=== PATIENT | female | born 1990 | race Caucasian/White ===

== ENCOUNTER 2017-03-09 12:49 | Emergency (ER) | payer MEDICAID ==
--- NOTE | 2017-03-09 14:48 | C.PDOC ---
History Of Present Illness 26 y/o female presents to the ED with complaints of dysuria, urinary frequency and urgency, suprapubic discomfort and nausea for the past couple days. Pt denies fever, vomiting, back pain, diarrhea or any other complaints. LMP 02/07, pt unsure if she is . Does not use any form of contraceptive. Time Seen by Provider: 03/09/17 13:40 Chief Complaint (Nursing): Abdominal Pain History Per: Patient History/Exam Limitations: no limitations Onset/Duration Of Symptoms: Days Current Symptoms Are (Timing): Still Present Severity: Mild Location Of Pain/Discomfort: Suprapubic Radiation Of Pain To:: None Associated Symptoms: Nausea, Urinary Symptoms. denies: Fever, Vomiting, Diarrhea, Back Pain Exacerbating Factors: None Alleviating Factors: None Recent travel outside of the [place]: No Abnormal Vaginal Bleeding: No Past Medical History Reviewed: Historical Data, Nursing Documentation, Vital Signs Vital Signs: Last Vital Signs Temp 98 F 03/09/17 16:00 Pulse 72 03/09/17 16:00 Resp 18 03/09/17 16:00 BP 112/74 03/09/17 16:00 Pulse Ox 96 03/09/17 16:00 - Medical History PMH: Gastritis - [facility] Procedures IMMOBILIZ/WOUND ATTN NEC (05/10/15) INJECT/INFUSE NEC (04/30/13) TETANUS TOXOID ADMINIST (05/10/15) Family History: States: Unknown Family Hx - Social History Hx Alcohol Use: No Hx Substance Use: No - Immunization History Hx Tetanus Toxoid Vaccination: No (patient not sure of last tetanus) Hx Influenza Vaccination: No Hx Pneumococcal Vaccination: No Review Of Systems Except As Marked, All Systems Reviewed And Found Negative. Constitutional: Negative for: Fever Gastrointestinal: Positive for: Nausea, Abdominal Pain. Negative for: Vomiting , Diarrhea Genitourinary: Positive for: Dysuria, Frequency, Other (urgency) Musculoskeletal: Negative for: Back Pain Physical Exam - Physical Exam Appears: Well, Non-toxic, No Acute Distress Skin: Warm, Dry, No Rash Head: Atraumatic, Normacephalic Neck: Normal, Normal ROM, Supple Chest: Symmetrical Cardiovascular: Rhythm Regular, No Murmur Respiratory: Normal Breath Sounds, No Rales, No Rhonchi, No Wheezing Gastrointestinal/Abdominal: Normal Exam, Soft, No Tenderness, No Guarding, No Rebound Back: Normal Inspection, No CVA Tenderness, No Vertebral Tenderness, No Paraspinal Tenderness Extremity: Normal ROM, No Tenderness, No Swelling Extremity: Bilateral: Atraumatic, Normal ROM Neurological/Psych: Oriented x3, Normal Speech, Normal Cognition ED Course And Treatment O2 Sat by Pulse Oximetry: 99 (room air) Pulse Ox Interpretation: Normal Medical Decision Making Medical Decision Makin yo F c/o 2 day h/o urinary frequency, urgency and dysuria. Plan: - UA - Urine cx - POC UA shows (+) UTI, urine cx sent and pending. cg (-). Pt medicated with rocephin 1 g IM. Pt states that she feels comfortable going home. Pt advised to also f/u with referral physician in 2 days without fail for re-evaluation. Take medication as prescribed. Advised to return to the ER at any time for any new or worsening symptoms. Disposition Counseled Patient/Family Regarding: Studies Performed, Diagnosis, Need For Followup, Rx Given - Disposition Referrals: Nora Brasher MD [Staff Provider] - Disposition: HOME/ ROUTINE Disposition Time: 15:23 Condition: STABLE Additional Instructions: Follow up with referral physician in 2 days without fail for re-evaluation. Take medication as prescribed. Return to the ER at any time for any new or worsening symptoms. Prescriptions: Nitrofurantoin Macrocrystals [Macrobid] 100 mg PO BID #20 cap Phenazopyridine [Pyridium] 200 mg PO BID #6 tab Instructions: Urinary Tract Infection in Women (ED) Forms: Work Excuse Print Language: WELSH - Clinical Impression Clinical Impression: UTI (urinary tract infection) - PA / EMT B / Resident Statement MD/DO has reviewed & agrees with the documentation as recorded. - Scribe Statement The provider has reviewed the documentation as recorded by the Jjaa Victoria All medical record entries made by the Jaja were at my direction and personally dictated by me. I have reviewed the chart and agree that the record accurately reflects my personal performance of the history, physical exam, medical decision making, and the department course for this patient. I have also personally directed, reviewed, and agree with the discharge instructions and disposition.
[2017-03-09 15:03] LABS: SQUAMOUS EPITHIAL 5 /hpf (0-5); URINE BACTERIA OCC (<OCC); URINE BILIRUBIN NEGATIVE (NEGATIVE); URINE BLOOD NEGATIVE (NEGATIVE); URINE CLARITY Hazy (Clear); URINE COLOR Yellow (YELLOW); URINE GLUCOSE (UA) NORMAL (Normal); URINE LEUKOCYTE ESTERASE 3+ Leu/uL (Negative); URINE NITRATE POSITIVE (NEGATIVE); URINE PROTEIN 1+ mg/dL (NEGATIVE); URINE UROBILINOGEN NORMAL mg/dL (0.2-1.0)
[2017-03-09] MEDS ORDERED: cefTRIAXone 1 gm in Water For Injection 2.1 ML IM ONE (15:23)
[2017-03-09] MEDS ORDERED: LIDOCAINE HYDROCHLORIDE IM ONE (16:00)
[2017-03-09] MEDS ORDERED: CEFTRIAXONE IM ONE (16:00)
[2017-03-09 16:02] VITALS: BP 112/74; PULSE 72; RESP 18; TEMP 98
[2017-03-09 18:16] VITALS: O2SAT 99
== END 2017-03-09 16:01 | disposition home or self-care (01) ==
LOC: C.ER 12:49
DX: N39.0 Urinary tract infection, site not specified (principal)
CPT/HCPCS: 81001; 87086; 87181; 96372; 99284; J0696

== ENCOUNTER 2017-10-30 15:00 | Emergency (ER) | payer MEDICAID ==
[2017-10-30 15:11] VITALS: TEMP 98.2
[2017-10-30 15:45] LABS: SQUAMOUS EPITHIAL 5 /hpf (0-5); URINE BILIRUBIN NEGATIVE (NEGATIVE); URINE BLOOD NEGATIVE (NEGATIVE); URINE CLARITY Hazy (Clear); URINE COLOR Yellow (YELLOW); URINE GLUCOSE (UA) NORMAL (Normal); URINE LEUKOCYTE ESTERASE NEG Leu/uL (Negative); URINE PROTEIN NEGATIVE (NEGATIVE); URINE UROBILINOGEN NORMAL mg/dL (0.2-1.0)
[2017-10-30 15:46] LABS: HCG,QUALITATIVE URINE NEGATIVE (NEGATIVE)
[2017-10-30] MEDS ORDERED: Sodium Chloride 0.9% 1,000 ML IV ONE (15:51)
[2017-10-30] MEDS ORDERED: Sodium Chloride 0.9% 1,000 ML ONE (15:59)
[2017-10-30 16:21] LABS: BASO # 0.1 K/uL (0.0-0.2); BASO % 0.7 % (0.0-2.0); EOS # 0.1 K/uL (0.0-0.7); EOS % 0.9 % (0.0-4.0); HEMOGLOBIN 12.3 g/dL (11.0-16.0); MEAN CELL VOLUME 85.5 fL (81.0-99.0); MEAN CORPUSCULAR HEMOGLOBIN 28.1 pg (27.0-31.0); MEAN CORPUSCULAR HGB CONC 32.9 g/dL (33.0-37.0); MEAN PLATELET VOLUME 8.2 fL (7.2-11.7); MONO # 0.8 K/uL (0.0-0.8); MONO % 9.2 % (0.0-10.0); NEUT # 5.4 K/uL (1.8-7.0); NEUT % 65.2 % (50.0-75.0); RBC 4.39 Mil/uL (3.80-5.20); RED CELL DISTRIBUTION WIDTH 13.1 % (11.5-14.5); WHITE BLOOD COUNT 8.3 K/uL (4.8-10.8)
[2017-10-30 16:27] LABS: ALB/GLOB RATIO 1.2 (1.0-2.1); ALBUMIN 4.3 g/dL (3.5-5.0); ALT/SGPT 49 U/L (9-52); AST/SGOT 38 U/L (14-36); BLOOD UREA NITROGEN 11 mg/dL (7-17); CALCIUM 8.8 mg/dl (8.6-10.4); GFR AFRICAN-AMERICAN > 60; GFR NON-AFRICAN AMERICAN > 60; LIPASE 90 U/L (23-300)
--- NOTE | 2017-10-30 17:09 | C.PDOC ---
Time Seen by Provider: 10/30/17 15:16 Chief Complaint (Nursing): Abdominal Pain History Per: Patient Onset/Duration Of Symptoms: Days (few) Current Symptoms Are (Timing): Still Present Location Of Pain/Discomfort: LUQ, Suprapubic Quality Of Discomfort: Unable To Describe, "Pain" Associated Symptoms: Nausea, Constipation, Urinary Symptoms Alleviating Factors: None Additional History Per: Prior Records Abnormal Vaginal Bleeding: No Past Medical History Reviewed: Historical Data, Nursing Documentation, Vital Signs Vital Signs: Last Vital Signs Temp 98.2 F 10/30/17 15:07 Pulse 88 10/30/17 15:07 Resp 18 10/30/17 15:07 BP 119/81 10/30/17 15:07 Pulse Ox 95 10/30/17 15:07 - Medical History PMH: No Chronic Diseases, Gastritis Surgical History: No Surg Hx - [facility] Procedures IMMOBILIZ/WOUND ATTN NEC (05/10/15) INJECT/INFUSE NEC (04/30/13) TETANUS TOXOID ADMINIST (05/10/15) Family History: States: Unknown Family Hx - Social History Hx Alcohol Use: No Hx Substance Use: No - Immunization History Hx Tetanus Toxoid Vaccination: No (patient not sure of last tetanus) Hx Influenza Vaccination: No Hx Pneumococcal Vaccination: No Review Of Systems Except As Marked, All Systems Reviewed And Found Negative. Constitutional: Negative for: Fever, Weakness Cardiovascular: Negative for: Chest Pain Respiratory: Negative for: Shortness of Breath Gastrointestinal: Positive for: Abdominal Pain, Constipation. Negative for: Diarrhea Genitourinary: Positive for: Frequency. Negative for: Dysuria Musculoskeletal: Negative for: Neck Pain, Back Pain Skin: Negative for: Rash Neurological: Negative for: Weakness, Numbness Physical Exam - Physical Exam Appears: Non-toxic, No Acute Distress Skin: Normal Color, Warm, Dry, No Rash Head: Atraumatic, Normacephalic Eye(s): bilateral: Normal Inspection, PERRL, EOMI Neck: Normal ROM, Supple Cardiovascular: Rhythm Regular Respiratory: Normal Breath Sounds, No Accessory Muscle Use Gastrointestinal/Abdominal: Soft, Tenderness (LUQ. Mild suprapubic), No Guarding , No Rebound Back: No CVA Tenderness Extremity: Normal ROM Neurological/Psych: Oriented x3, Normal Motor, Normal Sensation ED Course And Treatment - Laboratory Results Result Diagrams: 10/30/17 16:10 10/30/17 16:10 Lab Interpretation: No Acute Changes Urine POC: Negative O2 Sat by Pulse Oximetry: 95 Pulse Ox Interpretation: Normal Progress - Interventions Interventions:: Observation, Intravenous fluid - Medications Administered Intravenous: Antiemetic, H-2 bam - Data Reviewed Data Reviewed: Lab, Old records - Patient Status Patient status: Mostly improved - Continuity of Care Discussed patient case with:: Patient, ED Nurse - Patient Plan Patient Plan: Discharge, F/U with PCP Disposition Counseled Patient/Family Regarding: Studies Performed, Diagnosis, Need For Followup, Rx Given - Disposition Disposition: HOME/ ROUTINE Disposition Time: 17:10 Condition: IMPROVED Additional Instructions: Drink plenty of fluids. Follow up with your doctor this week for further evaluation and treatment. Return to the ER if you develop fever, vomiting, worsening of symptoms or if you have any other concerns. Prescriptions: Famotidine [Pepcid] 20 mg PO BID #30 tab Polyethylene Glycol 3350 [Miralax] 17 gm PO DAILY #7 packet Instructions: Constipation, Adult (DC) Forms: [facility] (Namibian), General Discharge Instructions - Clinical Impression Clinical Impression: Abdominal pain, Constipation
[2017-10-30 17:23] VITALS: BP 100/66; PULSE 82; RESP 20; O2SAT 100
== END 2017-10-30 17:24 | disposition home or self-care (01) ==
LOC: C.ER 15:00
DX: K59.00 Constipation, unspecified (principal); R10.9 Unspecified abdominal pain
CPT/HCPCS: 80053; 81001; 83690; 84702; 84703; 85025; 96361; 96374; 96375; 99284; J2765; J7040

== ENCOUNTER 2018-06-03 19:48 | Emergency (ER) | payer MEDICAID ==
--- NOTE | 2018-06-03 20:48 | C.PDOC ---
History Of Present Illness 27 year old female presents to the emergency department with complaints of waking up abruptly with her heart pounding prior to arrival. Patient states that she was sleeping all day and was suddenly awoken with a feeling of shortness of breath and accelerated heart rate. Patient states that she has not had any symptoms such as fever, cough, or runny nose. 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 Patient is also concerned about due to not having her period since March and stating that she feels very crampy but "nothing comes out". <Kamille Springer - Last Filed: 06/03/18 22:18> History Per: Patient History/Exam Limitations: no limitations Onset/Duration Of Symptoms: Hrs Current Symptoms Are (Timing): Gone Initiating Event: Other (sleep) Quality: Tightness, "Pain" Current Respiratory Medications: None Associated Symptoms: Heart Racing, Other (shortness of breath). denies: Fever, Productive Cough, Anxiety <Kamille Springer - Last Filed: 06/03/18 22:18> <Alvarez Eubanks - Last Filed: 06/03/18 23:13> Time Seen by Provider: 06/03/18 20:19 Chief Complaint (Nursing): Shortness Of Breath Past Medical History Reviewed: Historical Data, Nursing Documentation, Vital Signs Vital Signs: Last Vital Signs Temp 99.3 F 06/03/18 19:52 Pulse 81 06/03/18 19:52 Resp 20 06/03/18 19:52 BP 111/73 06/03/18 19:52 Pulse Ox 99 06/03/18 19:52 - Medical History PMH: Gastritis Denies: Chronic Kidney Disease Surgical History: No Surg Hx - [facility] Procedures IMMOBILIZ/WOUND ATTN NEC (05/10/15) INJECT/INFUSE NEC (04/30/13) TETANUS TOXOID ADMINIST (05/10/15) Family History: States: No Known Family Hx - Social History Hx Alcohol Use: Yes Hx Substance Use: No - Immunization History Hx Tetanus Toxoid Vaccination: No Hx Influenza Vaccination: No Hx Pneumococcal Vaccination: No <Kamille Springer - Last Filed: 06/03/18 22:18> Vital Signs: Last Vital Signs Temp 99.3 F 06/03/18 19:52 Pulse 81 06/03/18 19:52 Resp 20 06/03/18 20:30 BP 111/73 06/03/18 19:52 Pulse Ox 99 06/03/18 22:21 - [facility] Procedures IMMOBILIZ/WOUND ATTN NEC (05/10/15) INJECT/INFUSE NEC (04/30/13) TETANUS TOXOID ADMINIST (05/10/15) <Alvarez Eubanks - Last Filed: 06/03/18 23:13> Review Of Systems Except As Marked, All Systems Reviewed And Found Negative. Constitutional: Negative for: Fever ENT: Negative for: Nose Discharge Cardiovascular: Positive for: Palpitations Respiratory: Positive for: Shortness of Breath. Negative for: Cough <Kamille Springer - Last Filed: 06/03/18 22:18> Physical Exam - Physical Exam Appears: Non-toxic, No Acute Distress Skin: Warm, Dry, No Rash Head: Atraumatic, Normacephalic Eye(s): bilateral: Normal Inspection Oral Mucosa: Moist Neck: Normal ROM, Supple Chest: Symmetrical, No Tenderness Cardiovascular: Rhythm Regular, No Friction Rub, No Murmur Respiratory: Normal Breath Sounds, No Rales, No Rhonchi, No Wheezing Gastrointestinal/Abdominal: Soft, No Tenderness Back: Normal Inspection, No CVA Tenderness Extremity: Normal ROM, No Tenderness, No Swelling Neurological/Psych: Oriented x3, Normal Speech, Normal Cognition, Normal Motor Gait: Steady <Kamille Springer C - Last Filed: 06/03/18 22:18> ED Course And Treatment - Laboratory Results Result Diagrams: 06/03/18 21:24 06/03/18 21:24 O2 Sat by Pulse Oximetry: 99 (RA) Pulse Ox Interpretation: Normal Progress Note: Plan: EKG. POC Urine <Kamille Springer - Last Filed: 06/03/18 22:18> - Laboratory Results Result Diagrams: 06/03/18 21:24 06/03/18 21:24 <Alvarez Eubanks - Last Filed: 06/03/18 23:13> Medical Decision Making Medical Decision Making: EKG: NSR at 75bpm, normal [place], normal ST- T wave changes. The patient has some shortness of breath while walking in the ED and the D dimer is elevated. CT Angio of the chest ordered. <Kamille Springer - Last Filed: 06/03/18 22:18> Medical Decision Making: CTA IMPRESSION: Unremarkable pulmonary embolism protocol CTA of the chest. Patient in no acute distress. Lungs CTA b/l. Patient states she has been told she is snoring very loudly and often and she has gained a lot of weight lately. Instructed to follow up and return to ED for worsening breathing, pain, fever, cough, or any other problem. <Alvarez Eubanks - Last Filed: 06/03/18 23:13> Disposition - Disposition Disposition Time: 22:21 <Kamille Springer - Last Filed: 06/03/18 22:18> <Alvarez Eubanks - Last Filed: 06/03/18 23:13> - Disposition Disposition: HOME/ ROUTINE Condition: STABLE Instructions: Shortness of Breath (Dyspnea), Obstructive Sleep Apnea, Adult (DC) Forms: [employer] (Faroese) - Clinical Impression Clinical Impression: Dyspnea - PA / RECORD MAKER / Resident Statement MD/DO has reviewed & agrees with the documentation as recorded. - Scribe Statement The provider has reviewed the documentation as recorded by the Scribe All medical record entries made by the Scribe were at my direction and personally dictated by me. I have reviewed the chart and agree that the record accurately reflects my personal performance of the history, physical exam, medical decision making, and the department course for this patient. I have also personally directed, reviewed, and agree with the discharge instructions and disposition. <Kamille Springer - Last Filed: 06/03/18 22:18> Physician Patient Turnover Patient Signed Over To: Alvarez Eubanks Handoff Comments: Pending CT scan and re-evaluation <Kamille Springer - Last Filed: 06/03/18 22:18>
[2018-06-03 21:29] LABS: BASO % 0.4 % (0.0-2.0); EOS # 0.1 K/uL (0.0-0.7); EOS % 0.7 % (0.0-4.0); HEMOGLOBIN 12.8 g/dL (11.0-16.0); LYMPH # 2.9 K/uL (1.0-4.3); LYMPH % 27.8 % (20.0-40.0); MEAN CELL VOLUME 85.1 fL (81.0-99.0); MEAN CORPUSCULAR HEMOGLOBIN 28.4 pg (27.0-31.0); MEAN CORPUSCULAR HGB CONC 33.4 g/dL (33.0-37.0); MEAN PLATELET VOLUME 8.3 fL (7.2-11.7); MONO # 1.1 K/uL (0.0-0.8); MONO % 10.3 % (0.0-10.0); NEUT # 6.3 K/uL (1.8-7.0); NEUT % 60.8 % (50.0-75.0); NRBC % 0.1 % (0.0-2.0); RBC 4.49 Mil/uL (3.80-5.20); RED CELL DISTRIBUTION WIDTH 13.1 % (11.5-14.5); WHITE BLOOD COUNT 10.4 K/uL (4.8-10.8)
[2018-06-03 21:42] LABS: ALB/GLOB RATIO 1.3 (1.0-2.1); ALBUMIN 4.3 g/dL (3.5-5.0); ALT/SGPT 25 U/L (9-52); AST/SGOT 26 U/L (14-36); BLOOD UREA NITROGEN 15 mg/dL (7-17); CALCIUM 9.6 mg/dl (8.6-10.4); GFR NON-AFRICAN AMERICAN > 60
[2018-06-03] MEDS ORDERED: Iodixanol 320 MG/ML 100 ML BOTTLE IV ONE (21:58)
[2018-06-03 23:28] VITALS: BP 95/66; PULSE 84; RESP 18; TEMP 98.9; O2SAT 97
--- NOTE | 2018-06-04 11:37 | CT ---
Date of service: 06/03/2018 CTA chest PE protocol Indication: Shortness of breath Technique: Contiguous axial images were obtained through the chest with intravenous contrast enhancement. Sagittal and coronal reconstructions were generated and reviewed. This CT exam was performed using 1 or more of the following dose reduction techniques: Automated exposure control, adjustment of the MAA and/or kV according to patient size, and/or use of iterative reconstruction technique. IV contrast: 100 mL Visipaque 320 Radiation dose (DLP): 603.57 MGy-cm. Comparison: None available Findings: Visualized portions of the inferior thyroid gland appear unremarkable. The mediastinal and hilar vascular structures appear within normal limits. The heart appears within normal limits of size. No large central or segmental pulmonary embolus evident. No focal consolidation. No pleural effusion. No pneumothorax. No suspicious pulmonary nodules measuring greater than 5 mm. Limited visualized portions of the upper abdomen appear grossly unremarkable. No acute osseous abnormality is detected. Impression: No large central or segmental pulmonary embolus identified. Preliminary impression was provided by [employer].
--- NOTE | 2018-06-04 23:03 | CARD ---
APPROVED REPORT Date of service: 06/03/2018 EKG Measurement Heart [id number] <Conclusion> Normal sinus rhythm Normal ECG
== END 2018-06-03 23:28 | disposition home or self-care (01) ==
LOC: C.ER 19:48
DX: R06.00 Dyspnea, unspecified (principal)
CPT/HCPCS: 71275; 80053; 85025; 85378; 93005; 99285; Q9967